=== PATIENT | male | born 1950 | race Caucasian/White ===

== ENCOUNTER 2023-07-10 08:07 | Day surgery (SDC) | payer OTHER, MEDICARE ==
[2023-07-07 17:12] LABS: EOSINOPHILS # (AUTO) 0.2 X10'3 (0-0.9); HEMOGLOBIN 14.3 g/dl (14.0-17.9); MEAN PLATELET VOLUME 7.2 FL (7.4-10.4)
[2023-07-07 17:14] LABS: BASOPHILS # (AUTO) 0.1 X10'3 (0-0.2); BASOPHILS % (AUTO) 1.3 % (0-1); EOSINOPHILS % (AUTO) 2.5 % (0-6); HEMATOCRIT 41.3 % (42.0-52.0); LYMPHOCYTES # (AUTO) 1.6 X10'3 (1.1-4.8); LYMPHOCYTES % (AUTO) 19.4 % (21-51); MEAN CORPUSCULAR HEMOGLOBIN 32.9 PG (27.0-31.0); MEAN CORPUSCULAR HGB CONC 34.6 g/dL (33.0-36.5); MEAN CORPUSCULAR VOLUME 95.1 FL (78-98); MONOCYTES # (AUTO) 0.6 X10'3 (0-0.9); MONOCYTES % (AUTO) 6.9 % (2-12); NEUTROPHILS # (AUTO) 5.7 X10'3 (1.8-7.7); NEUTROPHILS % (AUTO) 69.9 % (42-75); PLATELET COUNT 249 X10'3 (140-440); RED BLOOD COUNT 4.34 X10'6 (4.70-6.10); RED CELL DISTRIBUTION WIDTH 14.3 % (11.5-14.5); WHITE BLOOD COUNT 8.1 X10'3 (4.5-11.0)
[2023-07-07 17:30] LABS: ALANINE AMINOTRANSFERASE 34 U/L (12-78); ALBUMIN/GLOBULIN RATIO 1.1 (1.1-1.5); ALKALINE PHOSPHATASE 96 IU/L (46-116); ANION GAP 12 (8-16); ASPARTATE AMINO TRANSFERASE 23 U/L (10-37); BILIRUBIN,TOTAL 0.9 MG/DL (0.1-1.0); BLOOD UREA NITROGEN 22 MG/DL (7-18); BUN/CREATININE RATIO 14.9 (10.0-20.0); CALCIUM 9.3 MG/DL (8.5-10.1); CHLORIDE 100 MMOL/L (99-107); CREATININE 1.48 MG/DL (0.60-1.10); GLUCOSE 138 MG/DL (70-104); POTASSIUM 4.1 MMOL/L (3.5-5.1); SODIUM 140 MMOL/L (135-145); TOTAL CARBON DIOXIDE 28.2 MMOL/L (24-32); TOTAL PROTEIN 7.5 G/DL (6.4-8.2); eGFR 47 ML/MIN
[~2023-07-10] VITALS: Ht 188 cm; Wt 123.7 kg
[2023-07-10] VITALS (9 sets, daily range): BP systolic 109–143; BP diastolic 58–89; PULSE 60–63; RESP 9–16; TEMP 98.4; O2SAT 63–98
[~2023-07-10 08:07] MED LIST: APIX5TAB3 PO; ATOR80TA PO; BUPIVAcaine/PF 2.5mg/ml (0.25%) 10ml vial ONE; CITA20TA28 PO; DIGO125T2 PO; EMPA25TA PO; FURO-150 PO; LANTUS SUBCUT; METF500T PO; METO-384 PO; SPIR25TA5 PO; VALS40TA2 PO; cefazolin 2gm/D5W 100mL 100 ML IV ONE; famotidine 20mg tablet PO ONE; ringers solution, lacted 1,000 ML IV SCH
[2023-07-10] MEDS ORDERED: cloNIDine hcl/PF 100mcg/ml inj ONE (10:22)
[2023-07-10] MEDS ORDERED: morphine 4 MG/ML inj SYRINge IV PRN (10:55)
[2023-07-10] MEDS ORDERED: hydrALAZINE 20mg/ml inj. IV PRN (10:55)
[2023-07-10] MEDS ORDERED: HYDROmorphone/PF 0.2 MG/ML SYRINGE IV PRN ×2 (10:55)
[2023-07-10] MEDS ORDERED: acetaminophen 1,000mg/100ml IV 100 ML IV ONE (10:55)
[2023-07-10] MEDS ORDERED: ringers solution, lacted 1,000 ML IV SCH (10:55)
[2023-07-10] MEDS ORDERED: morphine 2 MG/ML inj. syringe IV PRN (10:55)
[2023-07-10] MEDS ORDERED: ondansetron/PF 4mg/2ml inj IV PRN (10:55)
[2023-07-10] MEDS ORDERED: labetalol 20mg/4ml (5mg/ml) syringe IV PRN (10:55)
[2023-07-10] MEDS ORDERED: meperidine/PF 25mg/ml syringe IV PRN (10:55)
[2023-07-10] MEDS ORDERED: proCHLORperazine 10 MG/2 ml inj IV PRN (10:55)
[2023-07-10] MEDS ORDERED: sevoflurane 250ml liquid IH ONE (12:42)
[2023-07-10] MEDS ORDERED: midazolam 1 mg/ML 2ml injection ONE (12:47)
[2023-07-10] MEDS ORDERED: fentaNYL /PF 50mcg/ml 5ml ampule ONE (12:48)
[2023-07-10] MEDS ORDERED: BUPIVAcaine/PF 2.5mg/ml (0.25%) 10ml vial ONE (13:26)
[2023-07-10] MEDS ORDERED: ondansetron/PF 4mg/2ml inj ONE (13:37)
[2023-07-10] MEDS ORDERED: propofol inj 20 ML IV ONE (13:37)
[2023-07-10] MEDS ORDERED: ROPIVAcaine 0.5% (5mg/ml) 30ml vial ONE (13:37)
[2023-07-10] MEDS ORDERED: dexamethasone sod phosphate 4mg/ml inj. ONE (13:37)
[2023-07-10] MEDS ORDERED: LIDOcaine 2% (20mg/ml) 5ml vial ONE (13:37)
[2023-07-10] MEDS ORDERED: bupivacaine (with preservative) 5 mg/ml inj. 50ml IJ ONE (14:05)
== END 2023-07-10 15:39 | disposition home or self-care (01) ==
LOC: PAS 08:07
PROVIDERS: ATTEND Orthopaedic Surgery Hand Surgery
DX: M19.032 Primary osteoarthritis, left wrist (principal); G89.18 Other acute postprocedural pain; K21.9 Gastro-esophageal reflux disease without esophagitis; F41.9 Anxiety disorder, unspecified; I10 Essential (primary) hypertension; I25.2 Old myocardial infarction; E11.9 Type 2 diabetes mellitus without complications; I25.10 Atherosclerotic heart disease of native coronary artery without angina pectoris; E78.5 Hyperlipidemia, unspecified; Z95.810 Presence of automatic (implantable) cardiac defibrillator; Z95.1 Presence of aortocoronary bypass graft; Z79.01 Long term (current) use of anticoagulants; Z79.84 Long term (current) use of oral hypoglycemic drugs; Z79.899 Other long term (current) drug therapy; Z96.643 Presence of artificial hip joint, bilateral; Z87.891 Personal history of nicotine dependence; Z88.8 Allergy status to other drugs, medicaments and biological substances
CPT/HCPCS: 25820; 36415; 64417; 80053; 82948; 85025; 93005; C1713; J0690; J0735; J1100; J2250; J2405; J2704; J2795; J3010; J3490; J7030; J7120; Z7506; Z7508; Z7512; A4565; A4618; A7000